=== PATIENT | female | born 1980 | race Caucasian/White ===

== ENCOUNTER 2020-06-25 18:22 | Emergency (ER) | payer OTHER ==
[~2020-06-25] VITALS: Ht 154.9 cm; Wt 67.6 kg
[2020-06-25 18:39] VITALS: BP 129/96; Ht 154.9 cm; Wt 67.6 kg
== END 2020-06-25 19:46 | disposition left against medical advice (07) ==
LOC: ED 18:22
DX: Z53.21 Procedure and treatment not carried out due to patient leaving prior to being seen by health care provider (principal)